=== PATIENT | female | born 1995 ===

== ENCOUNTER 2024-10-08 16:54 | Emergency (ER) | payer OTHER, SELFPAY ==
[2024-10-08 17:19] VITALS: BP 113/76; PULSE 79; RESP 14; TEMP 36.7; O2SAT 97; BMI 29.2
--- NOTE | 2024-10-08 19:48 | ED_ITS ---
HPI - Extremity Problem General: Chief complaint: Extremity Injury, Lower Stated complaint: left knee swollen Time Seen by Provider: 10/08/24 19:42 History of Present Illness: 29-year-old healthy female who presents to the emergency room with a lesion on her right thigh just above her knee. She says she felt a sharp pain and then had a swelling there and now it is reduced to a small bruise. She had read on the Internet and was concerned about a DVT. She stated she was told at urgent care she needed to come here to be evaluated for that. On exam she has a very small bruise. It looks like maybe she had a small hematoma that is now just turned into a bruise. I discussed with her that this is not the region in which you would have a deep vein thrombosis and it would not present like this. She is comfortable with that and ready to go home Related Data Allergies Allergy/AdvReac Type Severity Reaction Status Date / Time No Known Allergies Allergy Verified 10/08/24 17:28 Review of Systems Narrative: Constitutional symptoms: Negative except as documented in HPI. Skin symptoms: Negative except as documented in HPI. Eye symptoms: Negative except as documented in HPI. ENMT symptoms: Negative except as documented in HPI. Respiratory symptoms: Negative except as documented in HPI. Cardiovascular symptoms: Negative except as documented in HPI. Gastrointestinal symptoms: Negative except as documented in HPI. Genitourinary symptoms: Negative except as documented in HPI. Musculoskeletal symptoms: Negative except as documented in HPI. Neurologic symptoms: Negative except as documented in HPI. Psychiatric symptoms: Negative except as documented in HPI. Endocrine symptoms: Negative except as documented in HPI. Physical Exam Narrative: EXAM NARRATIVE: General: Alert, no acute distress. Skin: warm and dry, small nickel sized bruise on the right thigh just above the knee anteriorly. Head: Normocephalic Neck: Trachea midline Eye: Extraocular movements are intact. Ears, nose, mouth and throat: Oral mucosa moist Respiratory: Respirations are non-labored Musculoskeletal: Normal ROM Neurological: Alert and oriented, No focal neurological deficit observed. Psychiatric: Cooperative, appropriate mood & affect. Course Vital Signs: Vital signs: Vital Signs Temperature 98.1 F 10/08/24 17:19 Pulse Rate 79 10/08/24 17:19 Respiratory Rate 14 10/08/24 17:19 Blood Pressure 113/76 10/08/24 17:19 Pulse Oximetry 97 10/08/24 17:19 Oxygen Delivery Me thod Room Air 10/08/24 17:19 MDM - Extremity (Nontraumatic) Medical Decision Making Assessment and plan: Bruise - Discharged home - Discussed plan with patient. Answered any questions. - Evaluation and treatment of this problem were appropriate in the emergency setting. No radiology studies performed this visit Discharge Plan Discharge Patient Disposition: Home Clinical Impression: Bruise Condition: Stable Discharge Orders: Discharge ED (Routine); Ordered 10/08/24 Ordered By: Esthela Hung Discharge Diet: Usual diet Discharge Activity: Resume usual activity Patient Instructions: Opioid Safety, Pain Management Activity Restrictions/Additional Instructions: Thank you for choosing [facility] for your healthcare needs today. Please realize this is an emergency room and that we are providing you with a medical screening exam and this may not be complete and all inclusive of all the testing and or work up that you may need to determine your ailment or severity of your illness. You have been screened and evaluated and felt safe for discharge. Health conditions do change or evolve sometimes and as such it is important that you follow up with your Primary Doctor to be re checked, 3-5 days is a general good time frame for follow up. You are always welcome to return to the ED for re assessment if your symptoms are worsening or you have new concerns Coding Level of Care Code ED Proof Technician for Brent Simmons
== END 2024-10-08 19:53 | disposition home or self-care (01) ==
PROVIDERS: Emergency Provider Emergency Medicine
DX: S70.11XA Contusion of right thigh, initial encounter (principal); X58.XXXA Exposure to other specified factors, initial encounter
CPT/HCPCS: 99281